=== PATIENT | male | born 1985 | race Caucasian/White ===

== ENCOUNTER 2021-03-08 11:05 | Emergency (ER) | payer OTHER ==
[2021-03-08 11:25] VITALS: TEMP 97.8; BMI 23.6
[2021-03-08] MEDS ORDERED: SODIUM CHLORIDE 0.9% 1000 ML INFUS.BAG IV ONE (11:28)
[2021-03-08 11:40] LABS: BASO % 4.1 % (0-2.0); EOS % 0.3 % (0-4.5); HEMATOCRIT 45.1 % (35.4-49); HEMOGLOBIN 15.1 GM/dl (11.7-16.9); LYMPH % 41.4 % (8-40); MCH 33.9 pg (25.7-33.7); MCHC 33.6 g/dl (32.0-35.9); MEAN PLT VOLUME 7.7 fl (7.5-11.1); MONO % 11.4 % (3.8-10.2); NEUT % 42.8 % (42.8-82.8); PLATELET COUNT 178 10^3/uL (134-434); RBC 4.46 M/mm3 (4.00-5.60); RDW 12.8 % (11.9-15.9); WHITE BLOOD COUNT 3.9 K/mm3 (4.0-10.8)
[2021-03-08 11:44] LABS: URINE MUCUS 2+
[2021-03-08 11:46] LABS: ALBUMIN 4.9 g/dl (3.4-5.0); BILIRUBIN,TOTAL 1.4 mg/dl (0.2-1); CALCIUM 9.1 mg/dl (8.5-10); CREATININE 0.6 mg/dl (0.55-1.3); TOT PROT 7.9 g/dl (6.4-8.2)
[2021-03-08 11:55] VITALS: BP 160/99; PULSE 80
== END 2021-03-08 13:05 | disposition home or self-care (01) ==
LOC: FER 11:05
DX: S30.1XXA Contusion of abdominal wall, initial encounter (principal); W22.8XXA Striking against or struck by other objects, initial encounter
CPT/HCPCS: 36415; 71101-TC-RT-FY; 74177-TC; 80053; 81003; 81015; 85025; 99285-25; Q9967